=== PATIENT | female | born 2000 | race Caucasian/White ===

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

== ENCOUNTER 2024-02-21 10:28 | Outpatient (CLI) | payer BC | END 2024-02-21 10:29 | disposition home or self-care (01) | LOC: CSHULT 10:28 | PROVIDERS: ATTEND Internal Medicine Gastroenterology | DX: R14.0 Abdominal distension (gaseous) (principal); R19.8 Other specified symptoms and signs involving the digestive system and abdomen; K21.9 Gastro-esophageal reflux disease without esophagitis; N83.209 Unspecified ovarian cyst, unspecified side | CPT/HCPCS: 76700 ==